=== PATIENT | female | born 1955 | race Caucasian/White ===

== ENCOUNTER 2022-07-27 06:37 | Day surgery (SDC) | payer MEDICARE, BC ==
[~2022-07-27 06:37] MED LIST: Lactated Ringers 1,000 ML IV SCH; Lidocaine 1%/Sod Bicarbonate in NS 8.4% 1 ML Syringe IDERM PRN; Sodium Chloride 0.9% 10 ML Syringe FLUSH PRN; Sodium Chloride 0.9% 10 ML Syringe FLUSH SCH
[2022-07-27] MEDS ORDERED: fentaNYL 100 MCG/2 ML SDV ONE (06:58)
[2022-07-27] MEDS ORDERED: Propofol 200 MG/20 ML SDV ONE (06:58)
[2022-07-27] MEDS ORDERED: Lidocaine 1% 2 ML ONE (06:58)
[2022-07-27] MEDS ORDERED: Midazolam 1 MG/ML 2 ML SDV ONE (06:59)
[2022-07-27] MEDS ORDERED: Ondansetron 4 MG/2 ML SDV IVPUSH PRN (07:14)
[2022-07-27] MEDS ORDERED: fentaNYL 100 MCG/2 ML SDV IVPUSH PRN (07:14)
[2022-07-27] MEDS ORDERED: HYDROmorphone 0.5 MG/0.5 ML Syringe IVPUSH PRN (07:14)
[2022-07-27] MEDS ORDERED: Pregabalin 25 MG Cap PO SCH (07:30)
[2022-07-27] MEDS ORDERED: Acetaminophen 325 MG Tab PO SCH (07:30)
[2022-07-27] MEDS ORDERED: oxyCODONE ER 10 MG TAB.ER PO SCH (07:30)
[2022-07-27] MEDS: Tranexamic Acid 1,000 MG/10 ML Vial ONE ×2 (07:54→09:22)
[2022-07-27] MEDS: Morphine 8 MG, EPINEPHrine 0.3 MG, Cefuroxime 750 MG, Ketorolac 30 MG, Sodium Chloride ... PRN ×10 (07:55→09:21)
[2022-07-27] MEDS: Vancomycin 1 GM SDV ONE ×2 (07:55→09:22)
[2022-07-27] MEDS ORDERED: ceFAZolin 2 GM Vial ONE (08:30)
[2022-07-27] MEDS ORDERED: Phenylephrine 1% 10 MG/ML SDV ONE (08:30)
[2022-07-27] MEDS ORDERED: Ketorolac 30 MG/ML SDV IVPUSH SCH (09:53)
[2022-07-27] MEDS ORDERED: Acetaminophen/HYDROcodone 325-5 MG Tab PO PRN (09:58)
== END 2022-07-27 14:30 | disposition home or self-care (01) ==
LOC: JD.SDS 06:37
PROVIDERS: ATTEND Orthopaedic Surgery
DX: M16.12 Unilateral primary osteoarthritis, left hip (principal); F17.210 Nicotine dependence, cigarettes, uncomplicated; M54.50 Low back pain, unspecified; G89.29 Other chronic pain; Z79.899 Other long term (current) drug therapy; Z90.710 Acquired absence of both cervix and uterus; Z90.09 Acquired absence of other part of head and neck; Z79.82 Long term (current) use of aspirin
CPT/HCPCS: 0055T; 27130; 36415; 73501; 86850; 86900; 86901; 97116; 97161; A9270; C1713; C1776; J0171; J0690; J0697; J1885; J2250; J2270; J2370; J2704; J3010; J3370; J7120; 01214; J3490

== ENCOUNTER 2023-09-30 07:46 | Emergency (ER) | payer MEDICARE, BC ==
[2023-09-30 08:21] LABS: BASOPHILS ABSOLUTE AUTO 0.1 K/mm3 (0.0-0.2); BASOPHILS PERCENT AUTO 0.8 % (0.0-1.0); EOSINOPHILS ABSOLUTE AUTO 0.1 K/mm3 (0.0-0.4); EOSINOPHILS PERCENT AUTO 1.5 % (0.0-6.0); HEMATOCRIT 40.1 % (37.0-47.0); HEMOGLOBIN 13.4 gm/dl (12.0-16.0); IMMATURE GRAN ABSOLUTE AUTO 0.02 K/mm3 (0.00-0.05); IMMATURE GRAN PERCENT AUTO 0.3 % (0.0-0.4); LYMPHOCYTES ABSOLUTE AUTO 1.5 K/mm3 (1.0-4.8); LYMPHOCYTES PERCENT AUTO 19.5 % (24.0-44.0); MEAN CORPUSCULAR HEMOGLOBIN 29.6 pg (28.0-32.0); MEAN CORPUSCULAR HGB CONC 33.4 g/dl (32.0-36.0); MEAN CORPUSCULAR VOLUME 88.5 fl (83.0-99.0); MEAN PLATELET VOLUME 9.2 fl (9.4-12.3); MONOCYTES ABSOLUTE AUTO 0.5 K/mm3 (0.0-0.8); MONOCYTES PERCENT AUTO 6.6 % (0.0-8.0); NEUTROPHILS ABSOLUTE AUTO 5.6 K/mm3 (1.8-7.7); NEUTROPHILS PERCENT AUTO 71.3 % (41.0-71.0); PLATELET COUNT,PLT 396 K/mm3 (150-400); RED BLOOD CELL COUNT 4.53 M/mm3 (4.10-5.30); WHITE BLOOD CELL COUNT,WBC 7.78 K/mm3 (3.9-11.3)
[2023-09-30 08:28] LABS: INR 0.96; PROTHROMBIN TIME 10.2 SECONDS (9.7-12.0)
[2023-09-30 08:29] LABS: PTT,PARTIAL THROMBOPLSTIN TIME 26.8 SECONDS (21.7-31.4)
[2023-09-30] MEDS: Iopamidol 755 Mg/ML 100 ML Bottle IVPUSH ONE (08:29)
[2023-09-30] MEDS: Sodium Chloride 0.9% 100 ML IV SCH (08:29)
[2023-09-30 08:34] LABS: ALANINE AMINOTRANSFERASE,ALT 28 U/L (14-59); ALBUMIN 3.4 g/dl (3.4-5.0); ALKALINE PHOSPHATASE 88 U/L (46-116); ANION GAP 13.7 (5-15); ASPARTATE AMNIOTRANSFERASE,AST 20 U/L (15-37); BILIRUBIN TOTAL 0.5 mg/dL (0.2-1.0); BLOOD UREA NITROGEN,BUN 22 mg/dL (7-18); BUN/CREATININE RATIO 24.4 (14-18); CARBON DIOXIDE,CO2 26 mEq/L (21-32); CHLORIDE,CL 102 mEq/L (98-107); CREATININE 0.9 mg/dL (0.55-1.02); EST CRCL DRUG DOSING (CG) 51.28 mL/min; ESTIMATED GFR 70 mL/min (>60); GLUCOSE RANDOM 90 mg/dL (70-99); MAGNESIUM 1.6 mg/dL (1.8-2.4); PHOSPHORUS 3.5 mg/dL (2.6-4.7); POTASSIUM,K 3.7 mEq/L (3.5-5.1); PROTEIN TOTAL,TP 6.7 g/dl (6.4-8.2); SODIUM,NA 138 mEq/L (136-145)
[2023-09-30 08:35] LABS: TROPONIN I HIGH SENSITIVITY < 4 pg/mL (<=51)
[2023-09-30 08:36] LABS: CALCIUM 9.4 mg/dL (8.5-10.1)
[2023-09-30] MEDS: Aspirin 81 MG Tab.Chew PO ONE (09:38)
[2023-09-30] MEDS: Sodium Chloride 0.9% 10 ML Syringe FLUSH PRN (09:47)
[2023-09-30 10:01] LABS: APPEARANCE,URINE CLEAR (Clear); BILIRUBIN,URINE NEGATIVE (Negative); COLOR,URINE YELLOW (Yellow); GLUCOSE,URINE NEGATIVE (Negative); KETONES,URINE NEGATIVE (Negative); LEUKOCYTE ESTERASE,URINE NEGATIVE (Negative); NITRITE,URINE NEGATIVE (Negative); OCCULT BLOOD,URINE TRACE-LYSED (Negative); PH,URINE 6.5 (5.0-8.0); PROTEIN,URINE NEGATIVE (Negative); UROBILINOGEN,URINE 0.2 (0.2-1.0)
[2023-09-30 10:13] LABS: BACTERIA,URINE RARE /hpf (FEW); EPITHELIAL CELLS,URINE 0-5 /hpf (0-5); MUCUS,URINE RARE /hpf (FEW); RBC,URINE 0-5 /hpf (0-5); WBC,URINE 0-5 /hpf (0-5)
== END 2023-09-30 10:09 ==
LOC: JD.ED 07:46
DX: I67.9 Cerebrovascular disease, unspecified (principal); I63.81 Other cerebral infarction due to occlusion or stenosis of small artery; F17.210 Nicotine dependence, cigarettes, uncomplicated
CPT/HCPCS: 36415; 70450; 70496; 70498; 80053; 81001; 82947; 83735; 84100; 84484; 85025; 85610; 85730; 93005; 94762; 99285; A9270; J3490; Q9967; 93010

== ENCOUNTER 2024-10-20 08:08 | Day surgery (SDC) | payer MEDICARE, BC ==
[~2024-10-20 08:08] MED LIST changes: -Lactated Ringers 1,000 ML IV SCH; -Lidocaine 1%/Sod Bicarbonate in NS 8.4% 1 ML Syringe IDERM PRN; +Midazolam 1 MG/ML 2 ML SDV ONE; +Propofol 200 MG/20 ML SDV ONE
[2024-10-20] MEDS: Lactated Ringers 1,000 ML IV SCH (08:35)
[2024-10-20] MEDS: oxyCODONE ER 10 MG TAB.ER PO ONE (08:48)
[2024-10-20] MEDS ORDERED: Ondansetron 4 MG/2 ML SDV IVPUSH PRN (08:53)
[2024-10-20] MEDS ORDERED: fentaNYL 100 MCG/2 ML SDV IVPUSH PRN (08:53)
[2024-10-20] MEDS ORDERED: Lidocaine 1% 2 ML ONE (10:11)
[2024-10-20] MEDS ORDERED: Ondansetron 4 MG/2 ML SDV ONE (10:11)
[2024-10-20] MEDS ORDERED: Phenylephrine 1% 10 MG/ML SDV ONE (10:12)
[2024-10-20] MEDS ORDERED: Lactated Ringers 1,000 ML ONE (11:14)
[2024-10-20] MEDS ORDERED: Ketorolac 30 MG/ML SDV ONE (11:15)
[2024-10-20] MEDS: Morphine 8 MG, EPINEPHrine 0.3 MG, Cefuroxime 750 MG, Ketorolac 30 MG, Sodium Chloride ... PRN (11:16)
[2024-10-20] MEDS: Acetaminophen/HYDROcodone 325-5 MG Tab PO PRN (13:05)
== END 2024-10-20 15:42 | disposition home or self-care (01) ==
LOC: JD.SDS 08:08
PROVIDERS: ATTEND Orthopaedic Surgery
DX: M16.11 Unilateral primary osteoarthritis, right hip (principal); I10 Essential (primary) hypertension; F17.210 Nicotine dependence, cigarettes, uncomplicated; K21.9 Gastro-esophageal reflux disease without esophagitis; Z79.899 Other long term (current) drug therapy
CPT/HCPCS: 0055T; 27130; 73501; 97116; 97161; 97530; A9270; C1713; C1776; J0171; J0690; J0697; J1885; J2003; J2250; J2272; J2371; J2405; J2704; J3373; J7120; 01214